=== PATIENT | female | born 1970 | race Caucasian/White ===

== ENCOUNTER 2019-10-15 09:10 | Outpatient (CLI) | payer MEDICARE, MEDICAID, SELFPAY ==
--- NOTE | 2019-10-15 09:17 | MM_ITS ---
WS: [id number] BILATERAL DIGITAL SCREENING MAMMOGRAPHY WITH CAD CLINICAL INFORMATION: SCREENING HISTORY: Screening mammogram. No current complaints. COMPARISON: May 29, 2018 TECHNIQUE: Bilateral CC and MLO views. FINDINGS: The breasts are composed of heterogeneous fibroglandular density tissue, which can limit the detectio n of small underlying mass lesions. Lucent centered calcification left breast. No suspicious mass, as ymmetry, calcifications, or architectural distortion. No evidence of malignancy. MM/[place] [id number] IMPRESSION: BI-RADS: 2-Benign FOLLOW UP: 1 Year Follow-up Recommend return to annual screening mammography.
== END 2019-10-15 09:11 | disposition home or self-care (01) ==
LOC: RADSHAW 09:13
PROVIDERS: Family Provider Family Medicine; PCP Family Medicine; Visit Provider Family Medicine
DX: Z12.31 Encounter for screening mammogram for malignant neoplasm of breast (principal)
CPT/HCPCS: 77067

== ENCOUNTER 2020-11-21 09:44 | Outpatient (CLI) | payer MEDICARE, MEDICAID, SELFPAY ==
--- NOTE | 2020-11-21 09:50 | MM_ITS ---
WS: [id number] Exam: [place] [id number] Date/Time of Exam: 11/21/2020 9:56 AM Reason For Exam: SCREENING VIEWS: MLO and CC views both breasts. Comparison made with prior exam of 07/10/2016, 05/29/2018 and 10/15/2019. Findings: There was no sign of mass, architectural distortion or suspicious calcification in either breast. Sc attered fibroglandular densities MM/[place] [id number] Impression: BI-RADS: 2-Benign FOLLOW-UP: 1 Year Follow-up This mammogram was also analyzed by the Computer Aided Detection System R2 Imag e Veterinary Laboratory Diagnostician.
== END 2020-11-21 09:45 | disposition home or self-care (01) ==
LOC: RADSHAW 09:48
PROVIDERS: PCP Family Medicine; Visit Provider Family Medicine
DX: Z12.31 Encounter for screening mammogram for malignant neoplasm of breast (principal)
CPT/HCPCS: 77067

== ENCOUNTER 2022-01-17 12:51 | Outpatient (CLI) | payer MEDICARE, MEDICAID, SELFPAY ==
--- NOTE | 2022-01-17 13:01 | MM_ITS ---
WS: [id number] BILATERAL 3D TOMOSYNTHESIS DIGITAL SCREENING MAMMOGRAPHY WITH CAD CLINICAL INFORMATION: SCREENING HISTORY: Screening mammogram. No current complaints. COMPARISON: November 21, 2020 TECHNIQUE: Bilateral CC and MLO views. FINDINGS: Scattered fibroglandular densities bilaterally. Punctate and lucent centered calcifications. No suspi cious focal mass, asymmetry, calcifications, or architectural distortion. No evidence of malignancy. MM/[place] [id number] IMPRESSION: BI-RADS: 2-Benign FOLLOW UP: 1 Year Follow-up Recommend return to annual screening mammography.
== END 2022-01-17 12:52 | disposition home or self-care (01) ==
PROVIDERS: PCP Family Medicine; Visit Provider Family Medicine
DX: Z12.31 Encounter for screening mammogram for malignant neoplasm of breast (principal)
CPT/HCPCS: 77063; 77067

== ENCOUNTER 2022-02-12 20:00 | Outpatient (CLI) | payer MEDICARE, MEDICAID, SELFPAY | END 2022-02-12 20:01 | disposition home or self-care (01) | LOC: SLEEP 02-13 08:10 | PROVIDERS: PCP Family Medicine; Visit Provider Family Medicine | DX: G47.33 Obstructive sleep apnea (adult) (pediatric) (principal); G47.36 Sleep related hypoventilation in conditions classified elsewhere | CPT/HCPCS: 95810 ==

== ENCOUNTER 2022-05-10 20:00 | Outpatient (CLI) | payer MEDICARE, MEDICAID, SELFPAY | END 2022-05-10 20:01 | disposition home or self-care (01) | LOC: SLEEP 05-11 06:52 | PROVIDERS: PCP Family Medicine; Visit Provider Family Medicine | DX: G47.33 Obstructive sleep apnea (adult) (pediatric) (principal) | CPT/HCPCS: 95811 ==

== ENCOUNTER 2023-01-21 14:23 | Outpatient (CLI) | payer MEDICARE, MEDICAID, SELFPAY ==
--- NOTE | 2023-01-21 14:36 | MM_ITS ---
WS: [id number] BILATERAL 3D TOMOSYNTHESIS DIGITAL SCREENING MAMMOGRAPHY WITH CAD CLINICAL INFORMATION: SCREENING HISTORY: Screening mammogram. No current complaints. COMPARISON: January 17, 2022 TECHNIQUE: Bilateral CC and MLO views. FINDINGS: Scattered fibroglandular densities bilaterally. No suspicious mass, asymmetry, calcifications, or arc hitectural distortion. No evidence of malignancy. Incidental punctate and lucent centered calcificati ons. MM/[place] [id number] IMPRESSION: BI-RADS: 2-Benign FOLLOW UP: 1 Year Follow-up Recommend return to annual screening mammography.
== END 2023-01-21 14:24 | disposition home or self-care (01) ==
LOC: RAD 14:27
PROVIDERS: PCP Family Medicine; Visit Provider Family Medicine
DX: Z12.31 Encounter for screening mammogram for malignant neoplasm of breast (principal)
CPT/HCPCS: 77063; 77067

== ENCOUNTER 2023-12-31 22:15 | Emergency (ER) | payer MEDICARE, MEDICAID, SELFPAY ==
[2023-12-31] VITALS (7 sets, daily range): BP systolic 109–133; BP diastolic 71–83; PULSE 66–86; RESP 13–16; TEMP 36.8; O2SAT 91–97; BMI 37.8
--- NOTE | 2023-12-31 22:21 | XRR_ITS ---
PROCEDURE INFORMATION: Exam: XR Chest Exam date and time: 12/31/2023 10:26 PM Age: 53 years old Clinical indication: Pain; Chest pressure; Additional info: Cp TECHNIQUE: Imaging protocol: Radiologic exam of the chest. Views: 1 view. COMPARISON: CR XR chest 2V* [id number] 01/06/2019 10:47 AM FINDINGS: Lungs: Unremarkable. No consolidation. Pleural spaces: Unremarkable. No pleural effusion. No pneumothorax. Heart/Mediastinum: Unremarkable. No cardiomegaly. Bones/joints: Unremarkable. XR/XR chest 1V portable [id number] IMPRESSION: No acute findings.
--- NOTE | 2023-12-31 22:26 | W.ED.CHESTPA ---
HPI - Chest Pain General: Chief Complaint: Chest Pain Stated Complaint: CP Time Seen by Provider: 12/31/23 22:15 Source: patient and EMS Mode of arrival: EMS Limitations: no limitations History of Present Illness: 53-year-old female who states that she started having sharp pain in the center of her chest roughly 2 hours ago she taken nitro with no relief states pain is sharp and rates it a 6 out of 10 worse with movement palpation denies any dyspnea or nausea. Associated symptoms: Deny abdominal pain, dyspnea, fever(s), nausea or vomiting Review of Systems Const: Denies: fever(s), chills, body aches or change in appetite Eyes: Denies: blurry vision or eye discomfort ENMT: Denies: throat pain or dental pain Card: Reports: chest pain Resp: Denies: dyspnea GI: Denies: abdominal pain, nausea, vomiting or diarrhea : Denies: dysuria Musc: Denies: neck pain or back pain Skin/Breast: Denies: rash Neuro: Denies: headache(s) PFSH ED PFSH: Family History Grandfather Diabetes maternal great grandfather Hyperlipidemia maternal Father Heart disease Mother Heart disease Denies family history of Colon cancer Ovarian cancer Clotting disorder Breast cancer Anesthesia complication Bleeding disorder Hypertension Uterine cancer Thyroid disease Stroke Social History Smoking and tobacco/nicotine status: current every day tobacco/nicotine user Alcohol intake: never Substance/Drug Use: never Physical Exam Const: COMMON NORMALS: no acute distress, patient oriented x3 and healthy appearing HENMT: COMMON NORMALS: normocephalic and atraumatic HEAD & SCALP: normocephalic and atraumatic Neck/C-Spine: COMMON NORMALS: full ROM and supple Chest: COMMONS NORMALS: normal inspection of the chest OTHER: point tender to center of chest reproduces pain Resp: COMMON NORMALS: normal respiratory effort, No retractions, No use of accessory muscles and clear to auscultation bilaterally AUSCULTATION: clear to auscultation bilaterally Cardio: COMMON NORMALS: regular rate, regular rhythm and No murmurs present (Cardio) RATE: regular rate RHYTHM: regular rhythm GI: COMMON NORMALS: Normal to inspection, nondistended, normoactive bowel sounds present, Soft to palpation, non-tender and no masses PALPATION: Yes Soft to palpation Extremity: COMMON NORMALS: normal to inspection and full ROM Neuro: COMMON NORMALS: patient oriented x3, moves all extremities and no focal motor deficits Psych: COMMON NORMALS: mental status grossly normal, Normal thought process present and cooperative THOUGHT PROCESS: Normal thought process present Skin: COMMON NORMALS: no rashes or lesions noted and no wounds GENERAL SKIN EXAM: no rashes or lesions noted Course Vital Signs: Vital signs: Vital Signs Temperature 98.3 F 12/31/23 22:19 Pulse Rate 66 01/01/24 00:45 Respiratory Rate 29 H 01/01/24 00:45 Blood Pressure 113/70 01/01/24 00:30 Pulse Oximetry 71 L 01/01/24 00:45 Oxygen Delivery Me thod Nasal Cannula 01/01/24 00:45 Oxygen Flow Rate 2 12/31/23 23:15 MDM - Chest Pain Medical Decision Making Patient presents here with chest pains atypical in nature she is point tender on exam is likely muscular troponins are normal no signs of acute coronary syndrome no signs of pulmonary embolism or dissection patient stable for discharge follow-up PCP return if worsening. Medical Records I reviewed the patient's medical records. Lab Data I reviewed the patient's lab results. 12/31/23 22:26 12/31/23 22:26 Radiology Impressions Chest X-Ray 12/31/23 22:21 IMPRESSION: No acute findings. Laboratory Results WBC 9.17 10^3/uL (3.29-11.43) 12/31/23 22: RBC 4.60 10^6/uL (3.85-5.65) 12/31/23 22:26 Hgb 14.90 g/dL (11.27-16.99) 12/31/23 22: Hct 44.4 % (36-47) 12/31/23 22: MCV 96.5 fl (85-98) 12/31/23 22: MCH 32.4 pg (27-33) 12/31/23 22: MCHC 33.6 g/dL (30-55) 12/31/23 22: RDW 13.0 % (12.1-15.1) 12/31/23 22: Plt Count 295 10^3/cmm (157-399) 12/31/23 22: MPV 10.2 fL (7.4-10.4) 12/31/23 22: Neut % (Auto) 51.8 % 12/31/23 22: Lymph % (Auto) 39.6 % 12/31/23 22: Ramsey % (Auto) 6.4 % 12/31/23 22: Eos % (Auto) 1.6 % 12/31/23 22: Baso % (Auto) 0.2 % 12/31/23 22: Neut # (Auto) 4.74 10^3/uL (1.8-7.7) 12/31/23: Lymph # (Auto) 3.6 10^3/uL (0.8-4.8) 12/31/23: Ramsey # (Auto) 0.6 10^3/uL (0.2-0.9) 12/31/23: Eos # (Auto) 0.2 10^3/uL (0.0-0.8) 12/31/23: Baso # (Auto) 0.0 10^3/uL (0.0-0.1) 12/31/23: Nucleated RBC % (auto) 0 % 12/31/23: Nucleated RBCs # 0.0 /100WBC 12/31/23 22: PT 13.50 SECONDS (12.1-14.9) 12/31/23: INR 1.00 (0.8-1.2) 12/31/23 22: Sodium 136 mmol/L (136-145) 12/31/23 22: Potassium 4.0 mmol/L (3.5-5.1) 12/31/23 22: Chloride 98 mmol/L (98-107) 12/31/23: Carbon Dioxide 27 mmol/L (22-29) 12/31/23 22: Anion Gap 15.0 (5-19) 12/31/23 22: BUN 12 mg/dL (6-20) 12/31/23: Creatinine 0.8 mg/dL (0.5-0.9) 12/31/23 22: GFR Calculation 75.3 mL/min (90-130) L 12/31/23 22:26 Glucose 117 mg/dL (65-115) H 12/31/23 22:26 Calculated Osmolality 283 mOsm/kg (285-295) L 12/31/23 22:26 Calcium 9.6 mg/dL (8.5-10.5) 12/31/23 22:26 Total Bilirubin 0.3 mg/dL (0.15-1.2) 12/31/23 22:26 AST 23 U/L (0-32) 12/31/23 22:26 ALT 23 U/L (0-33) 12/31/23 22:26 Alkaline Phosphatase 104 U/L (35-105) 12/31/23 22:26 Troponin T Baseline 15 ng/L (0-10) H 12/31/23 22: Troponin T 120 Minute 7.68 ng/L (0-10) 01/01/24 00:30 NT-Pro-B Natriuret Pep 59 pg/mL (0-125) 12/31/23 22:26 Total Protein 7.0 g/dL (6.6-8.7) 12/31/23 22:26 Albumin 4.2 g/dL (3.5-5.2) 12/31/23 22:26 Globulin 2.8 g/dL (1.3-4.6) 12/31/23 22: Lipase 36 U/L (13-60) 12/31/23 22:26 All radiology interpretation(s) finalized by discharge EKG Data EKG 1: I personally reviewed and interpreted this EKG as follows: EKG interpretation date: 12/31/23 EKG interpretation time: 22:21 Interpretation: nsr hr [address] or t wave abnormalities qrs 105 qtc 401 Discharge Plan Discharge Patient Disposition: Home Clinical Impression: Chest pain Prescriptions: No Action omeprazole 20 mg capsule,delayed release(DR/EC) 20 mg PO DAILY hydroxyzine pamoate [Vistaril] 25 mg capsule 25 mg PO TID PRN Vimpat 100 mg tablet 100 mg PO ONCE oxybutynin chloride 5 mg tablet 5 mg PO TID docusate sodium 100 mg capsule 100 mg PO DAILY simvastatin 20 mg tablet 20 mg PO DAILY olanzapine [Zyprexa] 5 mg tablet 5 mg PO DAILY ibuprofen 800 mg tablet 800 mg PO TID PRN cetirizine 10 mg tablet 10 mg PO DAILY PRN hydrochlorothiazide PO DAILY duloxetine [Cymbalta] 30 mg capsule,delayed release(DR/EC) 30 mg PO BID prenat.vits,jered,[id number]-[id number]-shlwq Tablet 1 tab PO DAILY metformin 500 mg tablet 500 mg PO BID lorazepam PO PRN Discharge Orders: Discharge ED (Routine); Ordered 01/01/24 Ordered By: Melanie Morgan Referrals: Briana Cano MD [Primary Care Provider] - 1-3 days Discharge Diet: Advance as tolerated Discharge Activity: Resume usual activity Patient Instructions: Chest Pain (ED) Coding Level of Care Code ED Ice Rink Attendant for Garrett Hidalgo
[2023-12-31 22:42] LABS: Basophils % 0.2 %; Eosinophils # 0.2 10^3/uL (0.0-0.8); Eosinophils % 1.6 %; Hematocrit 44.4 % (36-47); Lymphocytes # 3.6 10^3/uL (0.8-4.8); Lymphocytes % 39.6 %; Mean Corpuscular HGB Conc 33.6 g/dL (30-55); Mean Corpuscular Hemoglobin 32.4 pg (27-33); Mean Corpuscular Volume 96.5 fl (85-98); Mean Platelet Volume 10.2 fL (7.4-10.4); Monocytes # 0.6 10^3/uL (0.2-0.9); Monocytes % 6.4 %; Neutrophils # 4.74 10^3/uL (1.8-7.7); Neutrophils % 51.8 %; Nucleated Red Blood Cells % 0 %; Platelet Count 295 10^3/cmm (157-399); White Blood Count 9.17 10^3/uL (3.29-11.43)
[2023-12-31] MEDS: ondansetron 2 mg/ML SDV 2 mL 4 MG IVP (22:50)
[2023-12-31] MEDS: morphine 4 mg/mL SDV 1 mL IVP (22:50)
--- NOTE | 2023-12-31 22:52 | ECG_ITS ---
[facility] Test Date: 2023-12-31 Pat Name: Shanti Yoder Department: Room: Gender: Female Bio Medical Technician: : 1970 Requested By: Melanie Morgan Order Number: [id number] Clint MD: Aung Cates M.D. Measurements Intervals [place] Rate: 67 P: 65 [place]: 164 QRS: -22 QRSD: 103 T: 46 QT: 384 QTc: 405 Interpretive Statements SINUS RHYTHM WITH OCCASIONAL VENTRICULAR PREMATURE COMPLEXES BORDERLINE LEFT AXIS DEVIATION [QRS AXIS < -20] No previous ECG available for comparison Electronically Signed On 01-01-2024 16:50:46 CDT by Aung Cates M.D. [id number]
[2023-12-31 23:02] LABS: Troponin(5th) Baseline 15 ng/L (0-10)
[2023-12-31 23:10] LABS: Alanine Aminotransferase 23 U/L (0-33); Albumin Level 4.2 g/dL (3.5-5.2); Alkaline Phosphatase 104 U/L (35-105); Aspartate Amino Transferase 23 U/L (0-32); Blood Urea Nitrogen 12 mg/dL (6-20); Calcium 9.6 mg/dL (8.5-10.5); Carbon Dioxide 27 mmol/L (22-29); Chloride 98 mmol/L (98-107); Creatinine Clr Calc Pharmacy 84.3671; Globulin 2.8 g/dL (1.3-4.6); Glomerular Filtration Rate 75.3 mL/min (90-130); Glucose 117 mg/dL (65-115); Lipase 36 U/L (13-60); Osmolality Calculated 283 mOsm/kg (285-295); Sodium 136 mmol/L (136-145); Total Bilirubin 0.3 mg/dL (0.15-1.2)
[2023-12-31 23:15] LABS: NT Pro B Type Natriuretic Pept 59 pg/mL (0-125)
[2024-01-01] VITALS (12 sets, daily range): BP systolic 113; BP diastolic 70; PULSE 56–76; RESP 16–29; O2SAT 17–94
--- NOTE | 2024-01-01 00:36 | ECG_ITS ---
[facility] Test Date: 2024-01-01 Pat Name: Shanti Yoder Department: Room: Gender: Female Junior Paralegal: : 1970 Requested By: Melanie Morgan Order Number: [id number] Clint MD: Aung Cates M.D. Measurements Intervals [place] Rate: 70 P: 63 [place]: 161 QRS: -22 QRSD: 111 T: 49 QT: 391 QTc: 422 Interpretive Statements SINUS RHYTHM WITH OCCASIONAL VENTRICULAR PREMATURE COMPLEXES BORDERLINE LEFT AXIS DEVIATION [QRS AXIS < -20] MODERATE INTRAVENTRICULAR CONDUCTION DELAY [110+ ms QRS DURATION] Compared to ECG 12/31/2023 22:52:41 Intraventricular conduction delay now present Electronically Signed On 01-01-2024 16:58:22 CDT by Aung Cates M.D. [email or web address] memorial [email or web address] [id number]
[2024-01-01 01:12] LABS: Troponin 5 2HR 7.68 ng/L (0-10)
[2024-01-01 01:17] LABS: Troponin 5 2HR Delta -7.32 ABS# (0-10)
--- NOTE | 2024-01-01 02:19 | PC.NURSE ---
pt transportation @ in we were told pt does not qualify for an ambulance for having a guardian. pt facility will not call a ride for pt; pt guardian stated to this nurse 'it's not perfect but send her by cab if needed' so we called the guardian back and transferred him through to the cab company to order a cab.
== END 2024-01-01 07:49 | disposition home or self-care (01) ==
PROVIDERS: Emergency Provider Emergency Medicine; PCP Family Medicine
DX: R07.9 Chest pain, unspecified (principal); Z79.84 Long term (current) use of oral hypoglycemic drugs; Z72.0 Tobacco use
CPT/HCPCS: 36415; 71045; 80053; 83690; 83880; 84484; 85025; 85610; 93005; 96374; 96375; 99285; J2270; J2405

== ENCOUNTER 2024-02-14 13:54 | Outpatient (CLI) | payer MEDICARE, MEDICAID, SELFPAY ==
--- NOTE | 2024-02-14 14:00 | MM_ITS ---
WS: [id number] BILATERAL 3D TOMOSYNTHESIS DIGITAL SCREENING MAMMOGRAPHY WITH CAD CLINICAL INFORMATION: SCREENING HISTORY: Screening mammogram. No current complaints. COMPARISON: 2022 TECHNIQUE: Bilateral CC and MLO views. FINDINGS: Scattered fibroglandular densities bilaterally. No suspicious focal mass, asymmetry, calcifications, or architectural distortion. No evidence of malignancy. Punctate and lucent centered calcifications. MM/[place] [id number] IMPRESSION: BI-RADS: 2-Benign FOLLOW UP: 1 Year Follow-up Recommend return to annual screening mammography.
== END 2024-02-14 13:55 | disposition home or self-care (01) ==
PROVIDERS: PCP Family Medicine; Visit Provider Family Medicine
DX: Z12.31 Encounter for screening mammogram for malignant neoplasm of breast (principal); R92.323 Mammographic fibroglandular density, bilateral breasts; R92.1 Mammographic calcification found on diagnostic imaging of breast
CPT/HCPCS: 77063; 77067

== ENCOUNTER 2024-10-25 22:44 | Emergency (ER) | payer MEDICARE, MEDICAID, SELFPAY ==
[2024-10-25 22:50] VITALS: BP 145/83; PULSE 81; RESP 17; TEMP 36.9; O2SAT 98; BMI 33.0
--- NOTE | 2024-10-25 22:57 | CTR_ITS ---
PROCEDURE INFORMATION: Exam: CT Head Without Contrast Exam date and time: 10/26/2024 12:30 AM Age: 54 years old Clinical indication: C/O dizziness TECHNIQUE: Imaging protocol: Computed tomography of the head without contrast. Radiation optimization: All CT scans at this facility use at least one of these dose optimization techniques: automated exposure control; mA and/or kV adjustment per patient size (includes targeted exams where dose is matched to clinical indication); or iterative reconstruction. COMPARISON: No relevant prior studies available. RADIATION DOSE METRICS: Total DLP (mGy-cm): 961.15 FINDINGS: Brain: No acute intra- or extra axial fluid collections are identified. The basal cisterns are patent. No mass effect or midline shift is seen. The strauss-white matter differentiation is normal. Periventricular hypoattenuation are nonspecific but likely the sequela of chronic small vessel ischemic disease. Borderline low-lying cerebellar tonsils reaching down to the level of the foramen magnum. Cerebral ventricles: The ventricles are nondilated. Paranasal sinuses: The paranasal sinuses appear grossly clear. Mastoid air cells: The mastoid air cells appear grossly clear. A small amount of cerumen is present in the left external auditory canal. Orbital cavities: The orbits appear normal. Bones: No acute calvarial fracture is identified. Soft tissues: No soft tissue abnormalities identified. Vasculature: There are atherosclerotic calcifications of the carotid siphons. CT/CT head wo con* [id number] IMPRESSION: 1. No evidence of acute intracranial hemorrhage, mass effect, or midline shift. 2. Please note that CT is insensitive for nonhemorrhagic strokes and MRI of the brain should be considered, if there is clinical concern for acute cerebral infarction.
--- NOTE | 2024-10-25 22:59 | ECG_ITS ---
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
[2024-10-25 23:35] LABS: Basophils % 0.2 %; Eosinophils # 0.1 10^3/uL (0.0-0.8); Eosinophils % 1.7 %; Hematocrit 40.9 % (36-47); Lymphocytes # 1.8 10^3/uL (0.8-4.8); Lymphocytes % 22.1 %; Mean Corpuscular Hemoglobin 31.4 pg (27-33); Mean Corpuscular Volume 98.1 fl (85-98); Mean Platelet Volume 9.9 fL (7.4-10.4); Monocytes # 0.4 10^3/uL (0.2-0.9); Monocytes % 4.7 %; Neutrophils # 5.83 10^3/uL (1.8-7.7); Neutrophils % 71.1 %; Nucleated Red Blood Cells % 0 %; Platelet Count 191 10^3/cmm (157-399); Red Blood Count 4.17 10^6/uL (3.85-5.65); Red Cell Distribution Width 12.7 % (12.1-15.1); White Blood Count 8.22 10^3/uL (3.29-11.43)
[2024-10-25 23:46] LABS: HCG, Serum Qual Negative (Negative)
[2024-10-25 23:48] LABS: INR 0.85 (0.8-1.2); Partial Thromboplastin Time 25.8 SECONDS (23.9-36.7)
[2024-10-25 23:52] LABS: Alanine Aminotransferase 18 U/L (0-33); Albumin Level 3.7 g/dL (3.5-5.2); Alkaline Phosphatase 91 U/L (35-105); Anion Gap 14.7 (5-19); Aspartate Amino Transferase 18 U/L (0-32); Blood Urea Nitrogen 13 mg/dL (6-20); Calcium 8.9 mg/dL (8.5-10.5); Carbon Dioxide 25 mmol/L (22-29); Chloride 98 mmol/L (98-107); Globulin 2.9 g/dL (1.3-4.6); Glomerular Filtration Rate 87.5 mL/min (90-130); Glucose 235 mg/dL (65-115); Magnesium 1.8 mg/dL (1.7-2.3); Osmolality Calculated 286 mOsm/kg (285-295); Potassium 3.7 mmol/L (3.5-5.1); Sodium 134 mmol/L (136-145); Total Bilirubin 0.2 mg/dL (0.15-1.2); Total Protein 6.6 g/dL (6.6-8.7)
[2024-10-26 00:24] VITALS: BP 130/73; PULSE 71; RESP 16; O2SAT 93
--- NOTE | 2024-10-26 00:29 | ED_ITS ---
HPI - Dizziness 2 General: Chief Complaint: Dizziness Stated Complaint: DIZZY Time Seen by Provider: 10/25/24 23:13 Source: patient and EMS Mode of arrival: EMS Limitations: no limitations History of Present Illness: HPI Narrative: Patient is a 54-year-old male presents to ED today from her assisted living facility for evaluation of dizziness. She states around 8:00 after eating dinner she stood up to walk back to her room as she was feeling tired when she began feeling like her head was swimming . She states she reportedly had a difficult time ambulating secondary to the dizziness and had some blurry vision. She states she sat down and her assisted living facility staff gave her some crackers and toast to eat which did help with her dizziness. Patient states upon arrival to the emergency department she does feel better. During my initial examination she was able to easily get out of bed and walked down the field with very minimal assistance. Patient states she felt steady on her feet. Staff from her assisted living and others who know this patient state she is at baseline. Patient has chronic intellectual disabilities and has a state appointed legal guardian. We contacted correction who stated that after episode of dizziness patient was ambulatory around correction without difficulty or assistance and seemingly back to her normal. She just wanted to get checked out thus they contacted EMS to bring her here. MD elicited complaint: dizziness Timing: sudden onset Severity: mild Description: room spinning and difficulty walking Context: change in body position History of similar symptoms: No Relieving factors: other (states she ate some crackers/toast and this helped) Associated symptoms: Denies chest pain, chills, headache(s), malaise, nausea, palpitations, syncope or vomiting Associated neuro symptoms: Deny confusion or numbness in extremities Stroke scale total: 0 Related Data Home Medications ?Medication ?Instructions ?Recorded ?Confirmed cetirizine 10 mg tablet 10 mg PO DAILY PRN 12/09/20 10/23/22 docusate sodium 100 mg capsule 100 mg PO DAILY 1 10/23/22 duloxetine 30 mg capsule,delayed 30 mg PO BID 12/09/20 10/23/22 release (Cymbalta) hydrochlorothiazide PO DAILY 12/09/20 10/23/22 hydroxyzine pamoate 25 mg capsule 25 mg PO TID PRN 05/2310/23/22 (Vistaril) ibuprofen 800 mg tablet 800 mg PO TID PRN 12/09/20 0 10/23/22 lacosamide 100 mg tablet (Vimpat) 100 mg PO ONCE 12/0910/23/22 lorazepam [Ativan] PO PRN 12/09/20 10/23/22 metformin 500 mg tablet 500 mg PO BID 12/09/2010/23 olanzapine 5 mg tablet (Zyprexa) 5 mg PO DAILY 1 10/23/22 omeprazole 20 mg capsule,delayed 20 mg PO DAILY 10/23/22 release oxybutynin chloride 5 mg tablet 5 mg PO TID 12/09/20 0 10/23/22 prenat.vits,jered,nsm-gomh-kofuf 1 tab PO DAILY 12/09/20 10/23/22 simvastatin 20 mg tablet 20 mg PO DAILY 12/09/2010/04 Allergies Allergy/AdvReac Type Severity Reaction Status Date / Time aspirin Allergy Intermediate rash Verified 10/23/22 09:15 Penicillins Allergy Intermediate rash Verified 10/23/22 09:15 Influenza Virus Vaccines Allergy Unknown Verified 10/25/24 22:55 Review of Systems 2 Const: Denies: fever(s), chills, body aches, fatigue or malaise Eyes: Reports: blurry vision (improved upon arrival); Denies: change in vision or photophobia Card: Denies: chest pain, palpitations, irregular heart rhythm, lightheadedness, syncope, pre-syncope or dyspnea on exertion Resp: Denies: dyspnea, productive cough or pain on inspiration GI: Denies: abdominal pain, nausea, vomiting, heartburn or diarrhea : Denies: dysuria Musc: Denies: neck pain, back pain or joint pain Skin/Breast: Denies: rash Neuro: Reports: dizziness (improved upon arrival); Denies: headache(s), numbness in extremities, weakness in extremities, sensory changes, confusion or behavioral changes PFSH ED 2 PFSH: Family History Grandfather Diabetes maternal great grandfather Hyperlipidemia maternal Father Heart disease Mother Heart disease Denies family history of Colon cancer Ovarian cancer Clotting disorder Breast cancer Anesthesia complication Bleeding disorder Hypertension Uterine cancer Thyroid disease Stroke Social History Smoking and tobacco/nicotine status: current every day tobacco/nicotine user Alcohol intake: never Substance/Drug Use: never Physical Exam 2 Const: COMMON NORMALS: no acute distress, average body habitus, patient oriented x3, no limitations, alert and well nourished GENERAL APPEARANCE: c ooperative HENMT: COMMON NORMALS: normocephalic and atraumatic HEAD & SCALP: normal to inspection, normocephalic and atraumatic FACE & SINUS: normal facial exam and face symmetric TEETH & GINGIVA: Yes edentulous Eye: COMMON NORMALS: Equal, round and reactive pupils present and conjunctivae normal GENERAL EYE: appearance normal, both eyes and all related structures and normal light reflex PERIORBITAL: periorbital findings normal EYELID: e yelids normal CONJUNCTIVA: Yes conjunctivae normal PUPIL: Yes Equal, round and reactive pupils present DIRECT OPHTHALMOSCOPY: Yes normal light reflex OTHER: horizontal nystagmus Neck/C-Spine: COMMON NORMALS: full ROM, no lymphadenopathy, supple and no meningeal signs Chest: COMMONS NORMALS: normal inspection of the chest Resp: COMMON NORMALS: normal respiratory effort and clear to auscultation bilaterally AUSCULTATION: clear to auscultation bilaterally Cardio: COMMON NORMALS: regular rate and regular rhythm RATE: regular rate RHYTHM: regular rhythm : COMMON NORMALS: Yes no CVA tenderness BLADDER/KIDNEY EXAM: Yes no CVA tenderness Back/Pelvis: COMMON NORMALS: no CVA tenderness and thoracic and lumbar spine normal to inspection Extremity: COMMON NORMALS: normal to inspection GENERAL: Yes normal exam except as noted Neuro: KAMRON COMA SCALE: document GCS findings Convent coma scale eye opening: Spontaneous Kamron coma scale verbal response: Orientated Convent coma scale motor response: Obey commands Convent coma scale total score: 15 C OMMON NORMALS: patient oriented x3, CN's II-XII intact bilaterally, moves all extremities, no focal motor deficits, no sensory deficits noted and gait normal SENSORIUM/ORIENTATION: Yes alert MENINGEAL SIGNS: Yes no meningeal signs COORDINATION/BALANCE: [id number]-rt-xuae test normal and gwjg-kn-vmce test normal SPEECH: Other neuro speech findings (pt is endentulous affecting speech to some degree-chronic) GAIT: Yes Normal gait present MOTOR EXAM: 5/5 motor strength present throughout COORDINATION: lcrijt-st-dvgm test normal and izij-my-opkh test normal Skin: COMMON NORMALS: no rashes or lesions noted GENERAL SKIN EXAM: no rashes or lesions noted Course 2 Vital Signs: Vital signs: Vital Signs Temperature 98.5 F 10/25/24 22:50 Pulse Rate 71 10/26/24 00:24 Respiratory Rate 16 10/26/24 00:24 Blood Pressure 130/73 10/26/24 00:24 Pulse Oximetry 93 10/26/24 00:24 Oxygen Delivery Me thod Room Air 10/26/24 00:24 MDM - Dizziness Medical Decision Making Patient arrives here following an episode of dizziness that occurred approximately 5 hours or so ago. Patient states her dizziness seem to improve after eating toast and crackers. According to correction report after speaking to them, she was ambulatory afterwards without difficulty or assistance. This has been the case here. She was able to ambulate up and down the hallway into the bathroom without difficulty. Her vital signs are stable. She has no acute focal neurologic deficits on her exam. History and certain parts of her physical exam somewhat hindered by her cognitive disability. We did contact the correction who verified patient is at her mental baseline as well as other individuals who know her. Emergency workup here including blood work and CT head were unremarkable. Blood sugar was elevated. Patient is a known diabetic. She states she is seeing her primary care provider tomorrow when he comes to their correction. At this time I do not have any concern for central etiology for her dizziness or other life-threatening etiology. Patient will be allowed discharge. Medical Records I reviewed the patient's medical records. Lab Data I reviewed the patient's lab results. 10/25/24 23:25 10/25/24 23:[address] 10/25/24 22:57 IMPRESSION: 1. No evidence of acute intracranial hemorrhage, mass effect, or midline shift. 2. Please note that CT is insensitive for nonhemorrhagic strokes and MRI of the brain should be considered, if there is clinical concern for acute cerebral infarction. Laboratory Results WBC 8.22 10^3/uL (3.29-11.43) 10/25/24 23:25 RBC 4.17 10^6/uL (3.85-5.65) 10/25/24 23: Hgb 13.10 g/dL (11.27-16.99) 10/25/24: Hct 40.9 % (36-47) 10/25/24: MCV 98.1 fl (85-98) H 10/25/24: MCH 31.4 pg (27-33) 10/25/24 MCHC 32.0 g/dL (30-55) 10/25/24: RDW 12.7 % (12.1-15.1) 10/25/24 Plt Count 191 10^3/cmm (157-399) 10/25/24 MPV 9.9 fL (7.4-10.4) 10/25/24 Neut % (Auto) 71.1 % 10/25/24: Lymph % (Auto) 22.1 % 10/25/24 [place] % (Auto) 4.7 % 10/25/24 Eos % (Auto) 1.7 % 10/25/24 Baso % (Auto) 0.2 % 10/25/24 Neut # (Auto) 5.83 10^3/uL (1.8-7.7) 10/25/24 Lymph # (Auto) 1.8 10^3/uL (0.8-4.8) 10/25/24: [place] # (Auto) 0.4 10^3/uL (0.2-0.9) 10/25/24 Eos # (Auto) 0.1 10^3/uL (0.0-0.8) 10/25/24: Baso # (Auto) 0.0 10^3/uL (0.0-0.1) 10/25/24 Nucleated RBC % (auto) 0 % 10/25/24 Nucleated RBCs # 0.0 /100WBC 10/25/24 PT 12.30 SECONDS (12.1-14.9) 10/25/24: INR 0.85 (0.8-1.2) 10/25/24: APTT 25.8 SECONDS (23.9-36.7) 10/25/24:25 Sodium 134 mmol/L (136-145) L 10/25/24 23:25 Potassium 3.7 mmol/L (3.5-5.1) 10/25/24 23: Chloride 98 mmol/L (98-107) 10/25/24: Carbon Dioxide 25 mmol/L (22-29) 10/25/24: Anion Gap 14.7 (5-19) 10/25/24: BUN 13 mg/dL (6-20) 10/25/24 23: Creatinine 0.7 mg/dL (0.5-0.9) 10/25/24: GFR Calculation 87.5 mL/min (90-130) L 10/25/24: Glucose 235 mg/dL (65-115) H 10/25/24: Calculated Osmolality 286 mOsm/kg (285-295) 10/25/24: Calcium 8.9 mg/dL (8.5-10.5) 10/25/24: Magnesium 1.8 mg/dL (1.7-2.3) 10/25/24: Total Bilirubin 0.2 mg/dL (0.15-1.2) 10/25/24: AST 18 U/L (0-32) 10/25/24: ALT 18 U/L (0-33) 10/25/24: Alkaline Phosphatase 91 U/L (35-105) 10/25/24: Total Protein 6.6 g/dL (6.6-8.7) 10/25/24: Albumin 3.7 g/dL (3.5-5.2) 10/25/24: Globulin 2.9 g/dL (1.3-4.6) 10/25/24 23: HCG, Qual Negative (Negative) 10/25/24 23: Urine Color Yellow (Yellow) 10/26/24 00: Urine Appearance Clear (CLEAR) 10/26/24 00: Urine pH 5.5 (5-7) 10/26/24 00: Ur Specific Marine 1.012 (1.005-1.030) 10/26/24 00:29 Urine Protein Negative (Negative) 10/26/24 00: Urine Glucose (UA) Negative (Normal) 10/26/24 00:29 Urine Ketones Negative (Negative) 10/26/24 00:29 Urine Blood Negative (Negative) 10/26/24 00: Urine Nitrate Negative (Negative) 10/26/24 00:29 Urine Bilirubin Negative (Negative) 10/26/24 00:29 Urine Urobilinogen 0.2 mg/dL (Negative) 10/26/24 00:29 Ur Leukocyte Esterase Trace (Negative) A 10/26/24 00: Urine RBC 0-4 /hpf (0-2) H 10/26/24 00:29 Urine WBC 0-4 /hpf (0-5) H 10/26/24 00:29 Ur Squamous Epith Cells 0-4 /hpf (0-5) H 10/26/24 00:29 Amorphous Sediment Not Reportable 10/26/24 00: Urine Bacteria Trace /hpf (NONE) 10/26/24 00: Urine Mucus 2+ /hpf 10/26/24 00:29 All radiology interpretation(s) finalized by discharge Discharge Plan Discharge Patient Disposition: Home Clinical Impression: Dizziness Condition: Stable Prescriptions: No Action omeprazole 20 mg capsule,delayed release(DR/EC) 20 mg PO DAILY hydroxyzine pamoate [Vistaril] 25 mg capsule 25 mg PO TID PRN Vimpat 100 mg tablet 100 mg PO ONCE oxybutynin chloride 5 mg tablet 5 mg PO TID docusate sodium 100 mg capsule 100 mg PO DAILY simvastatin 20 mg tablet 20 mg PO DAILY olanzapine [Zyprexa] 5 mg tablet 5 mg PO DAILY ibuprofen 800 mg tablet 800 mg PO TID PRN cetirizine 10 mg tablet 10 mg PO DAILY PRN hydrochlorothiazide PO DAILY duloxetine [Cymbalta] 30 mg capsule,delayed release(DR/EC) 30 mg PO BID prenat.vits,jered,ctl-czow-mkczf Tablet 1 tab PO DAILY metformin 500 mg tablet 500 mg PO BID lorazepam PO PRN Discharge Orders: Discharge ED (Routine); Ordered 10/26/24 Ordered By: Aleida Blake Referrals: Briana Cano MD [Primary Care Provider] - Activity Restrictions/Additional Instructions: As we discussed, upon arrival to the emergency department, most of your symptoms were already improved/resolved. You were ambulatory here without difficulty or assistance. You have indicated you are planning on seeing your primary care provider tomorrow. You can follow-up with them for any further instructions. Print Language: Belarusian Coding Level of Care Code ED Supervisor Finishing Room for Garrett Hidalgo
[2024-10-26 00:38] LABS: Bilirubin Urine Negative (Negative); Blood Urine Negative (Negative); Glucose Urine UA Negative (Normal); Ketones Urine Negative (Negative); Leukocyte Esterase Urine Trace (Negative); Nitrate Urine Negative (Negative); Protein Urine Negative (Negative); Specific Gravity, Urine 1.012 (1.005-1.030); Urine Appearance Clear (CLEAR); Urine Color Yellow (Yellow); Urobilinogen Urine 0.2 mg/dL (Negative); pH Urine 5.5 (5-7)
[2024-10-26 00:44] LABS: Add Urine Microscopic? YES; Bacteria Urine TRACE /hpf; RBC Urine 0-4 /hpf (0-2); Squamous Epithelial Cell Urine 0-4 /hpf (0-5); WBC Urine 0-4 /hpf (0-5)
[2024-10-26 00:45] LABS: Add Urine Culture? No; Mucus Urine 2+ /hpf
[2024-10-26 01:11] VITALS: BP 130/74; PULSE 82; O2SAT 95
== END 2024-10-26 01:32 | disposition home or self-care (01) ==
PROVIDERS: Emergency Medicine; Emergency Provider Physician Assistant; PCP Family Medicine
DX: R42 Dizziness and giddiness (principal); Z79.84 Long term (current) use of oral hypoglycemic drugs; Z72.0 Tobacco use
CPT/HCPCS: 36415; 70450; 80053; 81001; 83735; 84703; 85025; 85610; 85730; 93005; 99284

== ENCOUNTER 2025-02-17 08:55 | Outpatient (CLI) | payer MEDICARE, MEDICAID, SELFPAY ==
--- NOTE | 2025-02-17 09:03 | MM_ITS ---
WS: [id number] BILATERAL SCREENING DIGITAL TOMOSYNTHESIS MAMMOGRAM WITH CAD HISTORY: SCREENING COMPARISON: 02/14/2024, 01/21/2023, 11/19/2020 Bilateral CC and MLO views with tomosynthesis and synthetic mammography submitted. Computer aided detection analyzed. Breast composition: There are scattered areas of fibroglandular density. No suspicious masses, microcalcifications or architectural distortion. Benign calcifications in each breast. Linear asymmetry seen on the LEFT MLO is similar to the study from 11/21/2020. MM/MM [facility] tomosynthesis [id number] IMPRESSION: BI-RADS: 2 - Benign. FOLLOW UP: 1 Year Follow-up
== END 2025-02-17 08:56 | disposition home or self-care (01) ==
PROVIDERS: PCP Family Medicine; Visit Provider Internal Medicine
DX: Z12.31 Encounter for screening mammogram for malignant neoplasm of breast (principal)
CPT/HCPCS: 77063; 77067

== ENCOUNTER 2025-06-20 19:20 | Observation (INO) | payer MEDICARE, MEDICAID, SELFPAY ==
--- NOTE | 2025-06-20 19:07 | CTR_ITS ---
PROCEDURE INFORMATION: Exam: CT Head Without Contrast Exam date and time: 06/20/2025 7:10 PM Age: 55 years old Clinical indication: Stroke-like symptoms; Altered mental status/memory loss and speech disturbance; Additional info: Symptoms of acute stroke TECHNIQUE: Imaging protocol: Computed tomography of the head without contrast. Radiation optimization: All CT scans at this facility use at least one of these dose optimization techniques: automated exposure control; mA and/or kV adjustment per patient size (includes targeted exams where dose is matched to clinical indication); or iterative reconstruction. Other technique: STROKE PROTOCOL was implemented. COMPARISON: CT head wo con* [id number] 10/26/2024 12:30 AM RADIATION DOSE METRICS: Total DLP (mGy-cm): 1023.52 FINDINGS: Brain: No evidence of intra-axial or extra-axial hemorrhage. No mass effect or midline shift. Jones-white differentiation is maintained. Basilar cisterns are patent. Cerebral ventricles: No hydrocephalus. Paranasal sinuses: The visualized paranasal sinuses are well aerated. Mastoid air cells: The visualized mastoids and middle ears are clear. Bones: Calvarium is intact. No evidence of acute fracture. Soft tissues: No gross soft tissue abnormality. CT/CT head thrombolytic [id number] IMPRESSION: 1. No acute intracranial abnormality. ASSESSMENT: ASPECTS ([place] Stroke Program Early CT Score) is 10.
--- NOTE | 2025-06-20 19:07 | CTR_ITS ---
PROCEDURE INFORMATION: Exam: CTA Head With Contrast, Arteriography Exam date and time: 06/20/2025 7:14 PM Age: 55 years old Clinical indication: Stroke-like symptoms; Speech disturbance; Right facial droop; Additional info: CVA TECHNIQUE: Imaging protocol: Computed tomographic angiography of the head with contrast. Exam focused on the arteries. 3D rendering (Not supervised by radiologist): MIP and/or 3D reconstructed images were created by the technologist. Radiation optimization: All CT scans at this facility use at least one of these dose optimization techniques: automated exposure control; mA and/or kV adjustment per patient size (includes targeted exams where dose is matched to clinical indication); or iterative reconstruction. Contrast material: OMNI 350; Contrast volume: 100 ml; Contrast route: INTRAVENOUS (IV); COMPARISON: CT head thrombolytic [id number] 06/20/2025 7:10 PM RADIATION DOSE METRICS: Total DLP (mGy-cm): 476.72 FINDINGS: ANTERIOR CIRCULATION: Right internal carotid artery: Patent. Right middle cerebral artery: Patent. Right anterior cerebral artery: Patent. Left internal carotid artery: Patent. Left middle cerebral artery: Patent. There is irregularity and narrowing of a left M2/M3 opercular branch (for example, image [id number] series 4). Nonocclusive thrombus would be difficult to exclude. Left anterior cerebral artery: Patent. POSTERIOR CIRCULATION: Right vertebral artery: Patent. Left vertebral artery: Patent. Basilar artery: Patent. Right posterior cerebral artery: Patent. Left posterior cerebral artery: Patent. PROCEDURE INFORMATION: Exam: CTA Neck With Contrast Exam date and time: 06/20/2025 7:14 PM Age: 55 years old Clinical indication: Stroke-like symptoms; Speech disturbance; Right facial droop; Additional info: CVA TECHNIQUE: Imaging protocol: Computed tomographic angiography of the neck with contrast. Exam focused on the cervical segments of the vasculature. 3D rendering (Not supervised by radiologist): MIP and/or 3D reconstructed images were created by the technologist. Radiation optimization: All CT scans at this facility use at least one of these dose optimization techniques: automated exposure control; mA and/or kV adjustment per patient size (includes targeted exams where dose is matched to clinical indication); or iterative reconstruction. Contrast material: OMNI 350; Contrast volume: 100 ml; Contrast route: INTRAVENOUS (IV); COMPARISON: CT head thrombolytic [id number] 06/20/2025 7:10 PM RADIATION DOSE METRICS: Total DLP (mGy-cm): 476.72 FINDINGS: Right common carotid artery: Patent. No evidence of hemodynamically significant stenosis. Right internal carotid artery: Patent. No evidence of hemodynamically significant stenosis. Right external carotid artery: Patent. Left common carotid artery: Patent. No evidence of hemodynamically significant stenosis. Left internal carotid artery: Patent. No evidence of hemodynamically significant stenosis. Left external carotid artery: Patent. Right vertebral artery: Patent. Left vertebral artery: Patent. Soft tissues: No gross soft tissue abnormality. No evidence of fluid collection or hematoma. Bones/joints: No evidence of acute fracture or subluxation of the cervical spine. CT/CT angio headneck* [id number] IMPRESSION: 1. No evidence of large vessel occlusion in the head. 2. Irregularity and narrowing of a left middle cerebral artery M2/M3 opercular branch. Nonocclusive thrombus would be difficult to exclude. IMPRESSION: 1. No evidence of acute thrombosis or hemodynamically significant stenosis in the neck. REFERENCES: NASCET CRITERIA. The degree of stenosis in the cervical segment of the internal carotid artery is based on NASCET criteria. Normal is no stenosis. Mild is less than 50% stenosis. Moderate is 50-69% stenosis. Severe is 70% to 99% stenosis. Total occlusion is no detectable patent lumen.
--- NOTE | 2025-06-20 19:07 | XRR_ITS ---
PROCEDURE INFORMATION: Exam: XR Chest Exam date and time: 06/20/2025 7:29 PM Age: 55 years old Clinical indication: Other: AMS; Additional info: CVA; AMS TECHNIQUE: Imaging protocol: Radiologic exam of the chest. Views: 1 view. COMPARISON: CR XR chest 1V portable [id number] 12/31/2023 10:26 PM FINDINGS: Lungs: No focal consolidation. Pleural spaces: No evidence of pneumothorax. No evidence of pleural effusion. Heart/Mediastinum: Cardiomediastinal silhouette is within normal limits. Bones/joints: No evidence of acute osseous abnormality. XR/XR chest 1V portable [id number] IMPRESSION: 1. No acute cardiopulmonary abnormality.
--- NOTE | 2025-06-20 19:07 | ECG_ITS ---
[facility] Date: 2025-06-20 Pat Name: Shanti Yoder Department: Room: Gender: Female Client Support Professional: : 1970 Requested By: Melanie Morgan Order Number: [id number] Clint MD: Zandra Whyte M.D. Measurements Intervals [place] Rate: 60 P: 67 [place]: 146 QRS: -29 QRSD: 106 T: 45 QT: 387 QTc: 387 Interpretive Statements SINUS RHYTHM WITH SINUS ARRHYTHMIA POSSIBLE LEFT ATRIAL ENLARGEMENT [-0.1mV P-WAVE IN V1/V2] BORDERLINE LEFT AXIS DEVIATION [QRS AXIS < -20] Compared to ECG 10/25/2024 22:59:54 No significant changes Electronically Signed On 06-22-2025 19:26:32 CDT by Zandra Whyte M.D. [email or web address]
[2025-06-20] MEDS: iohexol 350 mg/mL 500 mL Btl (per mL) IV (19:14)
[2025-06-20 19:23] VITALS: BP 141/82; PULSE 82; RESP 16; TEMP 36.9; O2SAT 95
[2025-06-20 19:48] LABS: Hematocrit 43.0 % (36-47); Hemoglobin 13.90 g/dL (11.27-16.99); Mean Corpuscular HGB Conc 32.3 g/dL (30-55); Mean Corpuscular Hemoglobin 31.3 pg (27-33); Mean Corpuscular Volume 96.8 fl (85-98); Nucleated Red Blood Cells % 0 %; Platelet Count 230 10^3/cmm (157-399); Red Blood Count 4.44 10^6/uL (3.85-5.65); White Blood Count 7.30 10^3/uL (3.29-11.43)
[2025-06-20 20:00] LABS: INR 0.94 (0.8-1.2); Prothrombin Time 13.20 SECONDS (12.1-14.9)
[2025-06-20 20:01] LABS: Partial Thromboplastin Time 26.4 SECONDS (23.9-36.7)
[2025-06-20 20:05] LABS: Alanine Aminotransferase 25 U/L (0-33); Albumin Level 4.1 g/dL (3.5-5.2); Alkaline Phosphatase 87 U/L (35-105); Anion Gap 15.9 (5-19); Aspartate Amino Transferase 24 U/L (0-32); Blood Urea Nitrogen 14 mg/dL (6-20); Calcium 9.0 mg/dL (8.5-10.5); Carbon Dioxide 25 mmol/L (22-29); Chloride 99 mmol/L (98-107); Creatinine Clr Calc Pharmacy 99.9387; Globulin 2.6 g/dL (1.3-4.6); Glucose 112 mg/dL (65-115); Osmolality Calculated 283 mOsm/kg (285-295); Potassium 3.9 mmol/L (3.5-5.1); Sodium 136 mmol/L (136-145); Total Protein 6.7 g/dL (6.6-8.7)
[2025-06-20 20:09] VITALS: BP 162/105; PULSE 74; O2SAT 95
--- NOTE | 2025-06-20 20:14 | ED_ITS ---
HPI - Neuro Symptoms/Deficit 2 General: Chief Complaint: Neuro Symptoms/Deficit Stated Complaint: RIGHT SIDED FACIAL DROOP Source: patient and EMS Mode of arrival: EMS History of Present Illness: 55-year-old female who has a history of intellectual disability is a rodr[facility]z of [facility] at assisted living presents here with possible stroke per EMS assisted living stated that she had some right sided facial droop along with slurred speech that started at 5 PM. Patient here has some slight slurred speech unsure if this is her baseline speech though. No signs of facial droop. No weakness patient denies any headache or fever. Patient is not a very good historian. Related Data Home Medications ?Medication ?Instructions ?Recorded ?Confirmed cetirizine 10 mg tablet 10 mg PO DAILY PRN 12/09/20 10/23/22 docusate sodium 100 mg capsule 100 mg PO DAILY 1 10/23/22 duloxetine 30 mg capsule,delayed 30 mg PO BID 12/09/20 10/23/22 release (Cymbalta) hydrochlorothiazide PO DAILY 12/09/20 10/23/22 hydroxyzine pamoate 25 mg capsule 25 mg PO TID PRN 05/2310/23/22 (Vistaril) ibuprofen 800 mg tablet 800 mg PO TID PRN 12/09/20 0 10/23/22 lacosamide 100 mg tablet (Vimpat) 100 mg PO ONCE 12/0910/23/22 lorazepam [Ativan] PO PRN 12/09/20 10/23/22 metformin 500 mg tablet 500 mg PO BID 12/09/2010/23 olanzapine 5 mg tablet (Zyprexa) 5 mg PO DAILY 1 10/23/22 omeprazole 20 mg capsule,delayed 20 mg PO DAILY 10/23/22 release oxybutynin chloride 5 mg tablet 5 mg PO TID 12/09/20 0 10/23/22 prenat.vits,jered,ead-amwl-hpqnf 1 tab PO DAILY 12/09/20 10/23/22 simvastatin 20 mg tablet 20 mg PO DAILY 12/09/2010/04 Allergies Allergy/AdvReac Type Severity Reaction Status Date / Time aspirin Allergy Intermediate rash Verified 06/20/25 19:31 Penicillins Allergy Intermediate rash Verified 06/20/25 19:31 Influenza Virus Vaccines Allergy Unknown Verified 06/20/25 19:31 PFSH ED 2 PFSH: Family History Grandfather Diabetes maternal great grandfather Hyperlipidemia maternal Father Heart disease Mother Heart disease Denies family history of Colon cancer Ovarian cancer Clotting disorder Breast cancer Anesthesia complication Bleeding disorder Hypertension Uterine cancer Thyroid disease Stroke Social History Smoking and tobacco/nicotine status: current every day tobacco/nicotine user Alcohol intake: never Substance/Drug Use: never NIH stroke score 2 NIHSS: Level Of Consciousness - 1a: 0 Level Of Consciousness Questions - 1b: Both Correct Level Of Consciousness Commands - 1c: Both Correct Best Gaze - 2: Normal Visual Armendariz - 3: No Visual Loss Facial Palsy - 4: N ormal Motor Arm Right - 5: No Drift Motor Arm Left - 5: No Drift Motor Leg Right - 6: No Drift Motor Leg Left - 6: No Drift Limb Ataxia - 7: A bsent Sensory - 8: Normal Best Language - 9: No Aphasia Dysarthia - 10: Mild/Moderate Dysarthia Extinction And Inattention - 11: 0 Score: Total Score: 1 Physical Exam 2 Const: COMMON NORMALS: patient oriented x3 HENMT: COMMON NORMALS: normocephalic and atraumatic HEAD & SCALP: n ormocephalic and atraumatic Eye: COMMON NORMALS: Equal, round and reactive pupils present and EOMs intact bilaterally PUPIL: Yes Equal, round and reactive pupils present Neck/C-Spine: COMMON NORMALS: full ROM and supple Chest: COMMONS NORMALS: normal inspection of the chest Resp: COMMON NORMALS: normal respiratory effort, No retractions, No use of accessory muscles and clear to auscultation bilaterally AUSCULTATION: clear to auscultation bilaterally Cardio: COMMON NORMALS: regular rate, regular rhythm and No murmurs present (Cardio) RATE: regular rate RHYTHM: regular rhythm GI: COMMON NORMALS: Normal to inspection, nondistended, normoactive bowel sounds present, Soft to palpation, non-tender and no masses PALPATION: Yes Soft to palpation Extremity: COMMON NORMALS: normal to inspection and full ROM Neuro: COMMON NORMALS: patient oriented x3 and moves all extremities Psych: COMMON NORMALS: mental status grossly normal, Normal thought process present and cooperative THOUGHT PROCESS: Normal thought process present Skin: COMMON NORMALS: no rashes or lesions noted and no wounds GENERAL SKIN EXAM: no rashes or lesions noted Course 2 Vital Signs: Vital signs: Vital Signs Temperature 98.4 F 06/20/25 19:23 Pulse Rate 76 06/20/25 21:30 Respiratory Rate 16 06/20/25 19:23 Blood Pressure 150/101 06/20/25 21:30 Pulse Oximetry 95 06/20/25 21:30 Oxygen Delivery Me thod Room Air 06/20/25 21:30 MDM - Neuro Symptoms/Deficit Medical Decision Making Patient presents here with slurred speech along with right sided facial droop that is since resolved. Differential included CVA along with intracerebral hemorrhage. Head CT here was normal I did have neurology from [facility] she was evaluated do not believe that she is a TNKase candidate as her symptoms are resolving. I did recommend admission for further workup I spoke to hospitalist Dr. Bajwa and will admit at this time. Lab work was reviewed with no acute abnormalities. Medical Records I reviewed the patient's medical records. Lab Data I reviewed the patient's lab results. 06/20/25 19:44 06/20/25 19:44 Radiology Impressions Chest X-Ray 06/20/25 19:07 IMPRESSION: 1. No acute cardiopulmonary abnormality. Head CT 06/20/25 19:07 IMPRESSION: 1. No acute intracranial abnormality. ASSESSMENT: ASPECTS ([place] Stroke Program Early CT Score) is 10. ADDENDUM: 06/20/251948 The findings were verbally communicated by telephone with Dr. JOY at 7:46 PM CDT on 06/20/2025. Head/Neck CTA 06/20/25 19:07 IMPRESSION: 1. No evidence of large vessel occlusion in the head. 2. Irregularity and narrowing of a left middle cerebral artery M2/M3 opercular branch. Nonocclusive thrombus would be difficult to exclude. IMPRESSION: 1. No evidence of acute thrombosis or hemodynamically significant stenosis in the neck. REFERENCES: NASCET CRITERIA. The degree of stenosis in the cervical segment of the internal carotid artery is based on NASCET criteria. Normal is no stenosis. Mild is less than 50% stenosis. Moderate is 50-69% stenosis. Severe is 70% to 99% stenosis. Total occlusion is no detectable patent lumen. ADDENDUM: 06/20/251948 The findings were verbally communicated by telephone with Dr. JOY at 7:46 PM CDT on 06/20/2025. Laboratory Results WBC 7.30 10^3/uL (3.29-11.43) 06/20/25 19:44 RBC 4.44 10^6/uL (3.85-5.65) 06/20/25 19:44 Hgb 13.90 g/dL (11.27-16.99) 06/20/25 19:44 Hct 43.0 % (36-47) 06/20/25 19:44 MCV 96.8 fl (85-98) 06/20/25 19:44 MCH 31.3 pg (27-33) 06/20/25 19:44 MCHC 32.3 g/dL (30-55) 06/20/25 19:44 RDW 13.7 % (12.1-15.1) 06/20/25 19:44 Plt Count 230 10^3/cmm (157-399) 06/20/25 19:44 MPV 9.9 fL (7.4-10.4) 06/20/25 19:44 Neut % (Auto) 57.2 % 06/20/25 19:44 Lymph % (Auto) 33.2 % 06/20/25 19:44 Harvey % (Auto) 8.2 % 06/20/25 19:44 Eos % (Auto) 1.0 % 06/20/25 19:44 Baso % (Auto) 0.3 % 06/20/25 19:44 Neut # (Auto) 4.18 10^3/uL (1.8-7.7) 06/20/25 19:44 Lymph # (Auto) 2.4 10^3/uL (0.8-4.8) 06/20/25 19:44 Harvey # (Auto) 0.6 10^3/uL (0.2-0.9) 06/20/25 19:44 Eos # (Auto) 0.1 10^3/uL (0.0-0.8) 06/20/25 19:44 Baso # (Auto) 0.0 10^3/uL (0.0-0.1) 06/20/25 19:44 Nucleated RBC % (auto) 0 % 06/20/25 19:44 Nucleated RBCs # 0.0 /100WBC 06/20/25 19:44 PT 13.20 SECONDS (12.1-14.9) 06/20/25 19:44 INR 0.94 (0.8-1.2) 06/20/25 19:44 APTT 26.4 SECONDS (23.9-36.7) 06/20/25 19:44 Sodium 136 mmol/L (136-145) 06/20/25 19:44 Potassium 3.9 mmol/L (3.5-5.1) 06/20/25 19:44 Chloride 99 mmol/L (98-107) 06/20/25 19:44 Carbon Dioxide 25 mmol/L (22-29) 06/20/25 19:44 Anion Gap 15.9 (5-19) 06/20/25 19:44 BUN 14 mg/dL (6-20) 06/20/25 19:44 Creatinine 0.7 mg/dL (0.5-0.9) 06/20/25 19:44 GFR Calculation 87.2 mL/min (90-130) L 06/20/25 19:44 Glucose 112 mg/dL (65-115) 06/20/25 19:44 Calculated Osmolality 283 mOsm/kg (285-295) L 06/20/25 19:44 Calcium 9.0 mg/dL (8.5-10.5) 06/20/25 19:44 Total Bilirubin 0.3 mg/dL (0.15-1.2) 06/20/25 19:44 AST 24 U/L (0-32) 06/20/25 19:44 ALT 25 U/L (0-33) 06/20/25 19:44 Alkaline Phosphatase 87 U/L (35-105) 06/20/25 19:44 Total Protein 6.7 g/dL (6.6-8.7) 06/20/25 19:44 Albumin 4.1 g/dL (3.5-5.2) 06/20/25 19:44 Globulin 2.6 g/dL (1.3-4.6) 06/20/25 19:44 All radiology interpretation(s) finalized by discharge EKG Data EKG 1: I personally reviewed and interpreted this EKG as follows: EKG interpretation date: 06/20/25 EKG interpretation time: 20:15 Interpretation: nsr hr [address] elevation qrs 106 qtc 387 Discharge Plan Discharge Patient Disposition: Placed in Observation Clinical Impression: Transient cerebral ischemia Coding Level of Care Code ED Angledozer Operator for Garrett Hidalgo
[2025-06-20 20:30] VITALS: BP 157/95; PULSE 75; O2SAT 96
[2025-06-20 21:00] VITALS: BP 153/91; PULSE 67; O2SAT 94
[2025-06-20 21:30] VITALS: BP 150/101; PULSE 76; O2SAT 95
[2025-06-20 22:06] LABS: Add Urine Microscopic? NO
[2025-06-20 22:17] LABS: PCP Screen Urine Negative (Negative)
[2025-06-20 22:23] LABS: Glucose Urine UA Negative (Normal); Nitrate Urine Negative (Negative)
[2025-06-20 22:25] LABS: Specific Gravity, Urine 1.065 (1.005-1.030)
[2025-06-20 22:34] LABS: Charge for UA Resulting for Rev
[2025-06-20 22:44] LABS: Thyroid Stimulating Hormone 2.07 uIU/mL (0.27-4.20)
[2025-06-21] VITALS (65 sets, daily range): BP systolic 111–164; BP diastolic 44–103; PULSE 52–82; RESP 10–28; TEMP 36.6–37; O2SAT 90–99
--- NOTE | 2025-06-21 00:51 | PM.HP ---
Providers/Chief Complaint Admitting Physician: Ash Bajwa MD Primary Care Provider: Briana Cano MD Chief Complaint: RIGHT SIDED FACIAL DROOP History of Present Illness As per the previous notes and the patient: Shanti Yoder is a 55 year old female with past medical history of asthma and diabetes came from an assisted living with intellectual disability came with right-sided facial droop after activation of EMS through assisted living. They reported the patient has mild right-sided facial droop with slurred speech around 5 PM. However upon evaluation the patient did not report any dizziness, syncope, difficulty in speaking or any shortness of breath, headaches, and any focal neurological deficit. The patient seems to be pleasant. No orthopnea, PND, chest pain or chest pressure. Rest of the review of system is unremarkable Review of Systems General: Reports: 10 or more systems reviewed and unremarkable except in HPI and below Medications/Allergies Home Medications ?Medication ?Instructions ?Recorded ?Confirmed ?Last Taken ?Type cetirizine 10 mg tablet 10 mg PO DAILY PRN 12/09/20 10/23/22 Unknown History docusate sodium 100 mg capsule 100 mg PO DAILY 12/09/20 10/23/22 Unknown History duloxetine 30 mg capsule,delayed 30 mg PO BID 12/09/20 10/23/22 Unknown History release (Cymbalta) hydrochlorothiazide PO DAILY 12/09/20 10/23/22 Unknown History hydroxyzine pamoate 25 mg capsule 25 mg PO TID PRN 12/09/20 10/23/22 Unknown History (Vistaril) ibuprofen 800 mg tablet 800 mg PO TID PRN 12/09/20 10/23/22 Unknown History lacosamide 100 mg tablet (Vimpat) 100 mg PO ONCE 12/09/20 10/23/22 Unknown History lorazepam [Ativan] PO PRN 12/09/20 10/23/22 Unknown History metformin 500 mg tablet 500 mg PO BID 12/09/20 10/23/22 Unknown History olanzapine 5 mg tablet (Zyprexa) 5 mg PO DAILY 12/09/20 10/23/22 Unknown History omeprazole 20 mg capsule,delayed 20 mg PO DAILY 12/09/20 10/23/22 Unknown History release oxybutynin chloride 5 mg tablet 5 mg PO TID 12/09/20 10/23/22 Unknown History prenat.vits,jered,wgg-jjox-etkfq 1 tab PO DAILY 12/09/20 10/23/22 Unknown History simvastatin 20 mg tablet 20 mg PO DAILY 12/09/20 10/23/22 Unknown History Allergies Allergy/AdvReac Type Severity Reaction Status Date / Time aspirin Allergy Intermediate rash Verified 06/20/25 19:31 Penicillins Allergy Intermediate rash Verified 06/20/25 19:31 Influenza Virus Vaccines Allergy Unknown Verified 06/20/25 19:31 PFSH Acute PFSH: Family History Grandfather Diabetes maternal great grandfather Hyperlipidemia maternal Father Heart disease Mother Heart disease Denies family history of Colon cancer Ovarian cancer Clotting disorder Breast cancer Anesthesia complication Bleeding disorder Hypertension Uterine cancer Thyroid disease Stroke Social History Smoking and tobacco/nicotine status: current every day tobacco/nicotine user Alcohol intake: never Substance/Drug Use: never Vitals/I&O/Wt Last Vital Signs Temp 98.4 F 06/20/25 19:23 Pulse 68 06/21/25 00:17 Resp 16 06/21/25 00:17 BP 146/78 06/21/25 00:17 Pulse Ox 94 06/21/25 00:17 O2 Del Method Room Air 06/21/25 00:17 06/20/25 06/20/25 06/21/25 14:59 22:59 06:59 Intake Total 0 / 0 Balance 0 / 0 Weight last 48 hrs Weight 100.561 kg Physical Exam Narrative: General: Alert and oriented, lying comfortably without any distress HEENT: Normocephalic, atraumatic, grossly unremarkable exam Cardio: normal rate rhythm, normal S1-S2 without any murmurs, rubs, or gallops and JVD normal Respiratory: normal vascular breathing on auscultation without any wheezes, stridor, rhonchi GI: Abdomen soft, nontender, nondistended, normoactive bowel sounds present all 4 quadrants, Neuro: intact cranial nerves motor and sensory and cerebellar/coordination function without any focal neurological deficit Behavior: Appropriate and cooperative Extremities: Adequate palpable pulses, no edema or cyanosis observed Skin: Patient having skin lesions with itchiness on the shins, hands and abdomen no pustules or papules or any oozing. Data 06/20/25 19:44 06/20/25 19:44 A&P Assessment and plan 1. Transient cerebral ischemia: TIA workup, loaded with clopidogrel 300 mg and to start clopidogrel 75 mg daily Patient is allergic to aspirin High-dose statins, of note: Patient is on simvastatin 20 mg at home? Lipid panel and HbA1c TSH normal Brain MRI Telemetry monitoring Neurochecks every shift Echocardiographic Carotid Doppler Speech and swallow assessment OT PT evaluation Maintain hemodynamics Avoid antihypertensives at the moment considering patient with a possible TIA as diagnosis however presumed to be less likely considering patient clinical presentation and examination. Could be an episode of seizures 2. Skin lesions: Patient was found to have skin lesions possible scabies since the patient has itching and also at the webswyces Permethrin lotion once and to monitor Contact precautions 3. Seizures: Patient on home dose lacosamide 100 mg daily To resume home dose EEG considering patient presentation with possible high likelihood of seizures and less likely of TIA 4. Diabetes mellitus type II, non insulin dependent: Insulin sliding scale to continue Plan: To reconcile patient home medication and resume accordingly PDMP PDMP Reviewed: Not Reviewed Attestations Medical Necessity Statement*: Shanti Yoder's hospital stay will be less than 2 midnights for workup of TIA and ruling it out further and seizures is also in differentials to consider based on presentation and clinical examination Time Spent in Patient Care: 16 - 35 minutes (>than 50% of time spent in counselling and/or direct pt care on unit). Other Attestations: Patient condition has been discussed at length with the patient/family, I have independently reviewed the chart labs imaging/diagnostics/EKG. the goals of care and code status with the patient/family/NOK/legal manufacturer's service representative, and documented accordingly. The patient/family has been informed about the current condition and further plan of care. Agreed with the plan of care and understood without any language barrier. Every effort was made to ensure accuracy of computer project manager. Any obvious errors or omissions should be clarified with the author of the document. Coding Level of Care Code Acute Code for Chg Fwd Diagnoses Transient cerebral ischemia G45.9 Skin lesions L98.9 Seizures R56.9 Diabetes mellitus type II, non insulin dependent E11.9
[2025-06-21 01:40] LABS: Cholesterol 192 mg/dL (0-200); HDL Cholesterol 64 mg/dL (60-100); Triglycerides 99 mg/dL (0-150)
[2025-06-21 01:41] LABS: Estmated Average Glucose 105; Hemoglobin A1C 5.3 % (4.0-6.0)
[2025-06-21 04:19] LABS: Hematocrit 41.2 % (36-47); Hemoglobin 13.50 g/dL (11.27-16.99); Mean Corpuscular HGB Conc 32.8 g/dL (30-55); Mean Corpuscular Hemoglobin 31.6 pg (27-33); Mean Corpuscular Volume 96.5 fl (85-98); Nucleated Red Blood Cells % 0 %; Platelet Count 213 10^3/cmm (157-399); Red Blood Count 4.27 10^6/uL (3.85-5.65); White Blood Count 5.22 10^3/uL (3.29-11.43)
[2025-06-21 04:29] LABS: Alanine Aminotransferase 24 U/L (0-33); Albumin Level 3.9 g/dL (3.5-5.2); Alkaline Phosphatase 81 U/L (35-105); Anion Gap 13.7 (5-19); Aspartate Amino Transferase 21 U/L (0-32); Blood Urea Nitrogen 12 mg/dL (6-20); Calcium 9.1 mg/dL (8.5-10.5); Carbon Dioxide 27 mmol/L (22-29); Chloride 103 mmol/L (98-107); Creatinine Clr Calc Pharmacy 99.9387; Globulin 2.4 g/dL (1.3-4.6); Glucose 95 mg/dL (65-115); Osmolality Calculated 290 mOsm/kg (285-295); Potassium 3.7 mmol/L (3.5-5.1); Sodium 140 mmol/L (136-145); Total Protein 6.3 g/dL (6.6-8.7)
--- NOTE | 2025-06-21 08:00 | MR_ITS ---
WS: [id number] MRI BRAIN WITHOUT CONTRAST HISTORY: stroke protocol COMPARISON: CT 06/20/2025 TECHNIQUE: Diffusion imaging, multiplanar T1, T2 and FLAIR imaging obtained. Normal diffusion. No acute infarct. There are a few areas of increased T2 and FLAIR signal predominantly in the subcortical white matter of the frontal and parietal lobes. No large territory infarct. Very mild volume loss in the cerebrum. No hippocampal atrophy. Ventricles and extra-axial spaces are normal. No inferior displacement of cerebellar tonsils. The sella turcica and pituitary gland are unremarkable. Dural venous sinuses and venetie [place] demonstrate no abnormality on this unenhanced studies. Paranasal sinuses: Clear. Mastoid air cells: Normal. Calvarium and scalp: Intact. MR/MR head wo con* [id number] IMPRESSION: 1. Normal diffusion imaging. No acute infarct. 2. No prior infarcts. 3. Mild subcortical white matter small vessel changes. 4. Normal hippocampal formations. 5. No acute intracranial hemorrhage or edema.
--- NOTE | 2025-06-21 08:29 | PC.NURSE ---
PT TO [facility] @[id number].
--- NOTE | 2025-06-21 09:55 | PC.NURSE ---
PT BACK FROM MRI @[id number]
--- NOTE | 2025-06-21 14:41 | PC.NURSE ---
marketing services coordinator rounds at 1035- patient seen in ED while waiting on a MS room, patient about to work with speech, helped position pt in bed, patient really wants to go home now. Patient appears to be back to baseline. NIHSS negative.
--- NOTE | 2025-06-21 17:00 | PM.MISC ---
Miscellaneous Note Purpose of Documentation: Patient came in presenting strokelike symptoms TIA workup initiated MRI negative for stroke Note: Patient was admitted today MRI negative patient will continue to feed and follow through with care today if patient continue to stay stable will be discharged tomorrow to follow-up with the PCP.
--- NOTE | 2025-06-21 17:35 | PC.OT ---
Pt declines OT services stating I can do all of that (ADLs) by myself.
--- NOTE | 2025-06-21 22:24 | USCV_ITS ---
Shanti Yoder Age: 55 Gender: F : 1970 Exam Date: 06/21/2025 09:52 Ordering Phys: Ash Bajwa MD Technologist: Exam Location: [facility] [place] Indication: cva BP: 145 / 83 HR: 71 Rhythm: Sinus Technical Quality: Adequate MEASUREMENTS (Male / Female) Normal Values 2D ECHO LVOT Diameter 1.6 cm LV Ejection Fraction MOD 4C 54.4 % LV Ejection Fraction MOD 2C 64.5 % LV Ejection Fraction 2C AL 65.0 % LA Diameter 3.7 cm RA Systolic Volume 4C AL 26.0 ml RA Systolic Volume 4C MOD 26.4 ml Aorta at Sinotubular Diameter 2.4 cm M-MODE LA Ao Ratio MM 1.3 AV Cusp Separation MM 2.5 cm DOPPLER AV Peak Velocity 153.0 cm/s LVOT Peak Velocity 131.0 cm/s AV Area Cont Eq vti 2.1 cm squared AV Area Cont Eq pk 1.7 cm squared MV Peak Velocity 120.0 cm/s TR Peak Velocity 140.0 cm/s TR Peak Gradient 7.8 mmHg FINDINGS Left Ventricle Normal left ventricular size and systolic function, EF 60%. No gross wall motion abnormalities.Grade I/IV diastolic dysfunction (abnormal relaxation filling pattern), normal to mildly elevated filling pressures. Right Ventricle Normal right ventricular size and systolic function. Right Atrium Normal right atrial size. Left Atrium Mildly increased left atrial size. IA Septum The interatrial septum seems to be bulging slightly to the right Mitral Valve Trace mitral valve regurgitation. Aortic Valve No gross abnormalities noted Tricuspid Valve No gross abnormalities noted Pulmonic Valve Pulmonic valve not well visualized. Pericardium No pericardial effusion. Aorta Normal aortic annulus size. IVC Inferior vena cava not visualized. CONCLUSIONS Normal left ventricular size and systolic function, EF 60%. No gross wall motion abnormalities.Grade I/IV diastolic dysfunction (abnormal relaxation filling pattern), normal to mildly elevated filling pressures. Mildly increased left atrial size. The interatrial septum seems to be bulging slightly to the right. Trace mitral valve regurgitation. There is no pericardial effusion. There are no intracardiac masses. No similar previous studies are available for comparison Dr Zandra Whyte MD [facility] (Electronically Signed) Final Date: 21 June 2025 23:02 S
--- NOTE | 2025-06-21 22:26 | USCV_ITS ---
Shanti Yoder Age: 55 Gender: F : 1970 Exam Date: 06/21/2025 10:06 Ordering Phys: Ash Bajwa MD Technologist: Exam Location: [facility] Indication: cva Risk Factors: Previous Vascular Surgery: Right Brachial BP: / Left Brachial BP: / Right Left Velocity (cm/s) Spectral Plaque Velocity (cm/s) Spectral Plaque Syst/Diast Broadening Syst/Diast Broadening 61.40/ 16.80 Prox CCA 55.40 / 11.90 64.50/ 19.90 Mid CCA 53.90 / 13.40 62.00/ 18.00 Distal CCA 43.40 / 10.40 50.70/ 15.20 Prox ICA 46.40 / 14.90 55.00/ 19.80 Mid ICA 76.40 / 32.90 43.80/ 13.50 Distal ICA 77.00 / 23.00 79.90 ECA 91.40 0.90 ICA/CCA 1.80 Antegrade Vertebral Antegrade 46.80/ 16.50 cm/s 43.00/ 20.00 cm/s Bi Subclavian Bi 79.40 39.60 CONCLUSIONS Right ICA stenosis <50%. Left ICA stenosis <50%. Normal antegrade Doppler flow noted in the right vertebral artery. Normal antegrade Doppler flow noted in the left vertebral artery. Delfino Ballesteros MD (Electronically Signed) Final Date: 21 June 2025 11:03 S
[2025-06-22] VITALS: BP 148/82; PULSE 84; RESP 16; TEMP 36.6; O2SAT 94
[2025-06-22 04:00] VITALS: BP 163/92; PULSE 68; RESP 16; TEMP 37; O2SAT 90
[2025-06-22 05:25] LABS: Hematocrit 42.3 % (36-47); Hemoglobin 13.60 g/dL (11.27-16.99); Mean Corpuscular HGB Conc 32.2 g/dL (30-55); Mean Corpuscular Hemoglobin 31.4 pg (27-33); Mean Corpuscular Volume 97.7 fl (85-98); Nucleated Red Blood Cells % 0 %; Platelet Count 221 10^3/cmm (157-399); Red Blood Count 4.33 10^6/uL (3.85-5.65); White Blood Count 5.14 10^3/uL (3.29-11.43)
[2025-06-22 05:58] LABS: Alanine Aminotransferase 22 U/L (0-33); Albumin Level 3.6 g/dL (3.5-5.2); Alkaline Phosphatase 80 U/L (35-105); Aspartate Amino Transferase 23 U/L (0-32); Blood Urea Nitrogen 9 mg/dL (6-20); Calcium 8.9 mg/dL (8.5-10.5); Carbon Dioxide 25 mmol/L (22-29); Chloride 107 mmol/L (98-107); Creatinine Clr Calc Pharmacy 138.1834; Globulin 2.6 g/dL (1.3-4.6); Glucose 88 mg/dL (65-115); Osmolality Calculated 296 mOsm/kg (285-295); Sodium 144 mmol/L (136-145); Total Protein 6.2 g/dL (6.6-8.7)
[2025-06-22 06:04] LABS: Anion Gap 16.1 (5-19); Potassium 4.1 mmol/L (3.5-5.1)
[2025-06-22 07:03] VITALS: BP 177/98; PULSE 56; RESP 16; TEMP 36.8; O2SAT 93
--- NOTE | 2025-06-22 09:48 | PC.CHAP ---
Pastoral Care Encounter/Spiritual Assessment Type of Contact [] Declined spot machine operator visit [] Patient/Family/Request visit [] Outpatient visit [] Follow-up visit [] Physician referral [] Code/Alert [x] Routine visit [] Staff referral [] Actively dying [] Patient sleeping [] Family support [] [] Out of room [] Palliative care [] [] Receiving care in room [] Pre-surgical visit [] Trauma [] Long length of stay [] ICU visit [] Other: Relational/Emotional Strength [x] Patient feels connected with others/family/visitors/staff [] Distress [] Loneliness/isolation [] Abandonment Spirituality of Patient [x] Person of Betty [] Attends Taoist of their Betty [x] Believes in Prayer [] Reads Bible or Congregation materials [] There are Spiritual issues to be addressed Cyanide Case Hardener Interventions [x] Prayer [x] Active listening [] Non-anxious presence [x] Spiritual/emotional support [] Crisis/trauma care [] Spiritual counseling [] Bereavement support [] Provided bereavement packet [] Provided Bible/devotional materials [] Provided toy/stuffed animal, coloring book to patient or family member [] Provided Communion [] Anointing/[place] [] Salvation [x] Completed spiritual assessment [] Other: Impact on Illness or Injury [] Angry [] Fearful [] Anxious [] Often cries [] Exhaustion [] Unable to work [] Unable to attend zoroastrianism [] Unable to walk/stand [] Unable to read [] Unable to drive [] Unable to eat/drink [] Unable to sleep [] Unable to be with family [] Patient intubated [] Other: Summary Time spent with patient 5 min
[2025-06-22 11:14] VITALS: BP 137/78; PULSE 63; RESP 18; TEMP 36.6; O2SAT 92
--- NOTE | 2025-06-22 11:17 | P.DS_ITS ---
Discharge Providers Date of Admission: 06/21/25 00:00 Date of Discharge: June 22, 2025 Attending Provider at Admission: Ash Bajwa MD Attending Provider at Discharge: Ash Bajwa MD Primary Care Provider: Briana Cano MD Diagnoses at Discharge Discharge Diagnosis 1. Transient cerebral ischemia: 2. Skin lesions: 3. Seizures: 4. Diabetes mellitus type II, non insulin dependent: Reason for Visit Reason for Visit: RIGHT SIDED FACIAL DROOP Hospital Course Hospital Course Shanti Yoder is a 55 year old female with past medical history of asthma and diabetes came from an assisted living with intellectual disability came with right-sided facial droop after activation of EMS through assisted living. They reported the patient has mild right-sided facial droop with slurred speech around 5 PM. However upon evaluation the patient did not report any dizziness, syncope, difficulty in speaking or any shortness of breath, headaches, and any focal neurological deficit. No orthopnea, PND, chest pain or chest pressure. Rest of the review of system is unremarkable MRI of the brain was done yesterday it was entirely unremarkable for any acute stroke. Patient was then kept in the hospital monitored overnight and patient is eating with no dysphagia doing okay with no change in mental status no fever no shortness of breath no chest pain. At this time patient can be discharged to follow-up with the PCP within 7 days. I like to send patient on a baby aspirin but if labs that patient has allergy to aspirin this symptoms is rash and this does not constitute allergy but the system will not allow me to do that patient to follow-up with the PCP at this time. Physical Exam Narrative: Generally patient is in no apparent distress HEENT normocephalic/atraumatic neck neck is supple cardiovascular heart is regular lungs are pretty much clear abdomen soft nontender nondistended unremarkable extremities are intact no edema has good pulses neurology has no focality lab studies lab studies reviewed and noted. Discharge Data Studies Completed and Pending Completed Studies During Hospitalization Category Date Time Status CT angio headneck* [id number] Stat Cat Scan 06/20/25 19:[address] head thrombolytic [id number] Stat Cat Scan 06/20/25 19:07 Completed XR chest 1V portable [id number] Stat Exams 06/20/25 19:07 Completed MR head wo con* [id number] Stat MRI 06/21/25 08:00 Completed CV carotid duplex BI* [id number] Stat Ultrasound 06/21/25 22:26 Completed CV. echo complete* [id number] Stat Ultrasound 06/21/25 22:24 Completed Pending at discharge Category Date Time Status EEG electroencephalogram Stat Exams 06/20/25 22:17 Ordered Radiology Impressions Chest X-Ray 06/20/25 19:07 IMPRESSION: 1. No acute cardiopulmonary abnormality. Head CT 06/20/25 19:07 IMPRESSION: 1. No acute intracranial abnormality. ASSESSMENT: ASPECTS ([place] Stroke Program Early CT Score) is 10. ADDENDUM: 06/20/251948 The findings were verbally communicated by telephone with Dr. JOY at 7:46 PM CDT on 06/20/2025. Head/Neck CTA 06/20/25 19:07 IMPRESSION: 1. No evidence of large vessel occlusion in the head. 2. Irregularity and narrowing of a left middle cerebral artery M2/M3 opercular branch. Nonocclusive thrombus would be difficult to exclude. IMPRESSION: 1. No evidence of acute thrombosis or hemodynamically significant stenosis in the neck. REFERENCES: NASCET CRITERIA. The degree of stenosis in the cervical segment of the internal carotid artery is based on NASCET criteria. Normal is no stenosis. Mild is less than 50% stenosis. Moderate is 50-69% stenosis. Severe is 70% to 99% stenosis. Total occlusion is no detectable patent lumen. ADDENDUM: 06/20/251948 The findings were verbally communicated by telephone with Dr. JOY at 7:46 PM CDT on 06/20/2025. Head MRI 06/21/25 08:00 IMPRESSION: 1. Normal diffusion imaging. No acute infarct. 2. No prior infarcts. 3. Mild subcortical white matter small vessel changes. 4. Normal hippocampal formations. 5. No acute intracranial hemorrhage or edema. Laboratory Results WBC 5.14 10^3/uL (3.29-11.43) 06/22/25 04:19 RBC 4.33 10^6/uL (3.85-5.65) 06/22/25 04:19 Hgb 13.60 g/dL (11.27-16.99) 06/22/25 04:19 Hct 42.3 % (36-47) 06/22/25 04:19 MCV 97.7 fl (85-98) 06/22/25 04:19 MCH 31.4 pg (27-33) 06/22/25 04:19 MCHC 32.2 g/dL (30-55) 06/22/25 04:19 RDW 13.6 % (12.1-15.1) 06/22/25 04:19 Plt Count 221 10^3/cmm (157-399) 06/22/25 04:19 MPV 10.4 fL (7.4-10.4) 06/22/25 04:19 Neut % (Auto) 53.8 % 06/22/25 04:19 Lymph % (Auto) 35.4 % 06/22/25 04:19 [place] % (Auto) 8.2 % 06/22/25 04:19 Eos % (Auto) 1.8 % 06/22/25 04:19 Baso % (Auto) 0.6 % 06/22/25 04:19 Neut # (Auto) 2.77 10^3/uL (1.8-7.7) 06/22/25 04:19 Lymph # (Auto) 1.8 10^3/uL (0.8-4.8) 06/22/25 04:19 [place] # (Auto) 0.4 10^3/uL (0.2-0.9) 06/22/25 04:19 Eos # (Auto) 0.1 10^3/uL (0.0-0.8) 06/22/25 04:19 Baso # (Auto) 0.0 10^3/uL (0.0-0.1) 06/22/25 04:19 Nucleated RBC % (auto) 0 % 06/22/25 04:19 Nucleated RBCs # 0.0 /100WBC 06/22/25 04:19 PT 13.20 SECONDS (12.1-14.9) 06/20/25 19:44 INR 0.94 (0.8-1.2) 06/20/25 19:44 APTT 26.4 SECONDS (23.9-36.7) 06/20/25 19:44 Sodium 144 mmol/L (136-145) 06/22/25 04:19 Potassium 4.1 mmol/L (3.5-5.1) 06/22/25 04:19 Chloride 107 mmol/L (98-107) 06/22/25 04:19 Carbon Dioxide 25 mmol/L (22-29) 06/22/25 04:19 Anion Gap 16.1 (5-19) 06/22/25 04:19 BUN 9 mg/dL (6-20) 06/22/25 04:19 Creatinine 0.5 mg/dL (0.5-0.9) 06/22/25 04:19 GFR Calculation 128.6 mL/min (90-130) 06/22/25 04:19 Glucose 88 mg/dL (65-115) 06/22/25 04:19 POC Glucose 93 mg/dL (70-110) 06/22/25 06:16 Estimat Average Glucose 105 06/20/25 19:44 Hemoglobin A1c 5.3 % (4.0-6.0) 06/20/25 19:44 Calculated Osmolality 296 mOsm/kg (285-295) H 06/22/25 04:19 Calcium 8.9 mg/dL (8.5-10.5) 06/22/25 04:19 Total Bilirubin 0.4 mg/dL (0.15-1.2) 06/22/25 04:19 AST 23 U/L (0-32) 06/22/25 04:19 ALT 22 U/L (0-33) 06/22/25 04:19 Alkaline Phosphatase 80 U/L (35-105) 06/22/25 04:19 Total Protein 6.2 g/dL (6.6-8.7) L 06/22/25 04:19 Albumin 3.6 g/dL (3.5-5.2) 06/22/25 04:19 Globulin 2.6 g/dL (1.3-4.6) 06/22/25 04:19 Triglycerides 99 mg/dL (0-150) 06/20/25 19:44 Cholesterol 192 mg/dL (0-200) 06/20/25 19:44 LDL Cholesterol, Calc 108 mg/dL (50-129) 06/20/25 19:44 HDL Cholesterol 64 mg/dL (60-100) 06/20/25 19:44 LDL/HDL Ratio 1.69 RATIO (0.00-3.22) 06/20/25: Cholesterol/HDL Ratio 3.00 mg/dL (0.0-4.40) 06/20/25: TSH 2.07 uIU/mL (0.27-4.20) 06/20/25:44 Urine Color Yellow (Yellow) 06/20/25 22:00 Urine Appearance Clear (CLEAR) 06/20/25 22:00 Urine pH 7.0 (5-7) 06/20/25 22:00 Ur Specific [place] 1.065 (1.005-1.030) H 06/20/25 22:00 Urine Protein Negative (Negative) 06/20/25 22:00 Urine Glucose (UA) Negative (Normal) 06/20/25 22:00 Urine Ketones Negative (Negative) 06/20/25 22:00 Urine Blood Negative (Negative) 06/20/25 22:00 Urine Nitrate Negative (Negative) 06/20/25 22:00 Urine Bilirubin Negative (Negative) 06/20/25 22:00 Urine Urobilinogen 1.0 mg/dL (Negative) 06/20/25 22:00 Ur Leukocyte Esterase Negative (Negative) 06/20/25 22:00 Amorphous Sediment Not Reportable 06/20/25 22:00 Urine Opiates Screen Negative ng/mL (Negative) 06/20/25 22:00 Ur Barbiturates Screen Negative ng/mL (Negative) 06/20/25 22:00 Ur Phencyclidine Scrn Negative ng/mL (Negative) 06/20/25 22:00 Ur Amphetamines Screen Negative ng/mL (Negative) 06/20/25 22:00 U Benzodiazepines Scrn Positive ng/mL (Negative) H 06/20/25 22:00 Urine Cocaine Screen Negative ng/mL (Negative) 06/20/25 22:00 U Marijuana (THC) Screen Negative ng/mL (Negative) 06/20/25 22:00 Vitals Last Vital Signs Temp 97.9 F 06/22/25 11:14 Pulse 63 06/22/25 11:14 Resp 18 06/22/25 11:14 BP 137/78 06/22/25 11:14 Pulse Ox 92 06/22/25 11:14 O2 Del Method Room Air 06/22/25 11:14 Discharge Plan Discharge Patient Disposition: Home Condition: Stable Prescriptions: Continued omeprazole 20 mg capsule,delayed release(DR/EC) 20 mg PO DAILY Vimpat 100 mg tablet 100 mg PO BID oxybutynin chloride 5 mg tablet 5 mg PO TID docusate sodium 100 mg capsule 200 mg PO DAILY ibuprofen 800 mg tablet 800 mg PO TID PRN (Reason: Fever Or Pain) cetirizine 10 mg tablet 10 mg PO DAILY PRN (Reason: allergies) olanzapine 2.5 mg tablet 2.5 mg PO BEDTIME lorazepam 0.5 mg tablet 0.5 mg PO BEDTIME albuterol sulfate [Ventolin HFA] 90 mcg/actuation HFA aerosol inhaler See Rx Instructions .ROUTE .COMPLEX PRN (Reason: cough wheezing) Rx Instructions: take 2 puffs by mouth every 4-6 hours as eeded for cough or wheezing fluticasone propionate 50 mcg/actuation spray,suspension 50 mcg INTRANASAL DAILY lisinopril 2.5 mg tablet 2.5 mg PO DAILY duloxetine 60 mg capsule,delayed release(DR/EC) 602 mg PO DAILY 28-800 mg-mcg Tablet 1 tab PO DAILY Discharge Order = DC NOW: Discharge Order (Routine); Ordered 06/22/25 Ordered By: Ivelisse Ortiz Referrals: Briana Cano MD [Primary Care Provider, Family Practice] Referral Note: follow up in 7days Patient Instructions: Opioid Safety, Patient Portal & Ce Instructions Discharge Attestations Time Spent in Discharge Care*: less than 30 min Quality Metrics Clinical Quality Measures [ No reported AMI, CVA or VTE this stay] Coding Level of Care Code Acute Code for [facility] Fwd Diagnoses Transient cerebral ischemia G45.9 Skin lesions L98.9 Seizures R56.9 Diabetes mellitus type II, non insulin dependent E11.9
[2025-06-22 15:18] VITALS: BP 137/78; PULSE 63; RESP 18; TEMP 36.6; O2SAT 92
== END 2025-06-22 15:19 | disposition home or self-care (01) ==
LOC: ER 22:25 → ER IP 06-21 06:10 → MEDSURG 06-21 14:04
PROVIDERS: Internal Medicine; Admitting Provider Student in an Organized Health Care Education/Training Program; Emergency Provider Emergency Medicine; PCP Family Medicine; Visit Provider Student in an Organized Health Care Education/Training Program
DX: G45.9 Transient cerebral ischemic attack, unspecified (principal); L98.9 Disorder of the skin and subcutaneous tissue, unspecified; R56.9 Unspecified convulsions; E11.9 Type 2 diabetes mellitus without complications; K21.9 Gastro-esophageal reflux disease without esophagitis; J45.909 Unspecified asthma, uncomplicated; Z83.3 Family history of diabetes mellitus; F17.200 Nicotine dependence, unspecified, uncomplicated
CPT/HCPCS: 36415; 36416; 70450; 70496; 70498; 70551; 71045; 80053; 80061; 80306; 81003; 82962; 83036; 84443; 85025; 85610; 85730; 92523; 92610; 93005; 93306; 93880; 96372; 97161; G0378; J1650; J1815; J3490; J7120; J9999